=== PATIENT | male | born 1970 | race African-American/Black ===

== ENCOUNTER 2016-11-03 15:10 | Emergency (ER) | payer OTHER ==
[2016-11-03 15:33] VITALS: BP 140/103; PULSE 88; TEMP 98.5; BMI 27.3
--- NOTE | 2016-11-03 15:56 | PDOC ---
History of Present Illness - General History Source: Patient Exam Limitations: No Limitations - History of Present Illness Initial Comments: 11/03/16 16:08 The patient is a 46 year old male with no significant past medical history, who presents to the ED with dysuria since last night. Patient denies any discharge. Denies being sexually active. Patient states this has never occurred in the past. Patient denies fever, chills, nausea, vomiting. Patient denies Urinary urgency, retention, hematuria. <Tyshawn Trejo - Last Filed: 11/03/16 16:08> - General History Source: Patient Exam Limitations: No Limitations <Jensen Edwards - Last Filed: 11/03/16 16:15> - General Chief Complaint: Urinary Problem Stated Complaint: PAIN WITH URINATION Time Seen by Provider: 11/03/16 15:36 Past History <Tyshawn Trejo - Last Filed: 11/03/16 16:08> - Past Medical History Suicide Attempt (Hx): No - Psycho/Social/Smoking Cessation Hx Anxiety: No Suicidal Ideation: No Smoking History: Never smoked Hx Alcohol Use: No Drug/Substance Use Hx: No Substance Use Type: None <Jensen Edwards - Last Filed: 11/03/16 16:15> - Past Medical History Allergies/Adverse Reactions: Allergies Allergy/AdvReac Type Severity Reaction Status Date / Time No Known Allergies Allergy Verified 11/03/16 15:18 Home Medications: Ambulatory Orders Ciprofloxacin [Cipro -] 500 mg PO Q12H #14 tablet 11/03/16 Ibuprofen 600 mg PO Q6H PRN #20 tablet 11/03/16 Review of Systems - Review of Systems Able to Perform ROS?: Yes Comments:: 11/03/16 16:08 GENERAL/CONSTITUTIONAL: No fever or chills. No weakness. HEAD, EYES, EARS, NOSE AND THROAT: No change in vision. No ear pain or discharge. No sore throat. CARDIOVASCULAR: No chest pain or shortness of breath. RESPIRATORY: No cough, wheezing, or hemoptysis. GASTROINTESTINAL: No nausea, vomiting, diarrhea or constipation. GENITOURINARY: + dysuria. No frequency, or change in urination. MUSCULOSKELETAL: No joint or muscle swelling or pain. No neck or back pain. SKIN: No rash NEUROLOGIC: No headache, vertigo, loss of consciousness, or change in strength/ sensation. ENDOCRINE: No increased thirst. No abnormal weight change. HEMATOLOGIC/LYMPHATIC: No anemia, easy bleeding, or history of blood clots. ALLERGIC/IMMUNOLOGIC: No hives or skin allergy. <Tyshawn Trejo - Last Filed: 11/03/16 16:08> *Physical Exam - Vital Signs Last Vital Signs Temp Pulse Resp BP Pulse Ox 98.5 F 88 15 140/103 98 11/03/16 15:19 11/03/16 15:19 11/03/16 15:19 11/03/16 15:19 11/03/16 15:19 - Physical Exam Comments: 11/03/16 16:09 GENERAL: Awake, alert, and fully oriented, in no acute distress HEAD: No signs of trauma EYES: PERRLA, EOMI, sclera anicteric, conjunctiva clear ENT: Auricles normal inspection, hearing grossly normal, nares patent, oropharynx clear without exudates. Moist mucosa NECK: Normal ROM, supple, no lymphadenopathy, JVD, or masses LUNGS: Breath sounds equal, clear to auscultation bilaterally. No wheezes, and no crackles HEART: Regular rate and rhythm, normal S1 and S2, no murmurs, rubs or gallops ABDOMEN: Soft, nontender, normoactive bowel sounds. No guarding, no rebound. No masses Penal exam: Circumcised. no drainage, no rash. EXTREMITIES: Normal range of motion, no edema. No clubbing or cyanosis. No cords, erythema, or tenderness NEUROLOGICAL: Cranial nerves II through XII grossly intact. Normal speech, normal gait SKIN: Warm, Dry, normal turgor, no rashes or lesions noted. <Tyshawn Trejo - Last Filed: 11/03/16 16:08> - Vital Signs Last Vital Signs Temp Pulse Resp BP Pulse Ox 98.5 F 88 15 140/103 98 11/03/16 15:19 11/03/16 15:19 11/03/16 15:19 11/03/16 15:19 11/03/16 15:19 <Jensen Edwards - Last Filed: 11/03/16 16:15> ED Treatment Course - ADDITIONAL ORDERS Additional order review: Laboratory Results 11/03/16 15:50 Urine Color Straw Urine Appearance Clear Urine pH 6.0 Ur Specific Crawford 1.015 Urine Protein Negative Urine Glucose (UA) Negative Urine Ketones Trace Urine Blood Trace-intact Urine Nitrite Negative Urine Bilirubin Negative Urine Urobilinogen 1.0 e.u/dl Ur Leukocyte Esterase Negative <Tyshawn Trejo - Last Filed: 11/03/16 16:08> Medical Decision Making - Medical Decision Making 11/03/16 16:12 A portion of this note was documented by scribe services under my direction. I have reviewed the details of the note, within reason, and agree with the documentation with the following case summary and management plan written by me. Patient treated in the ED. Nursing notes are reviewed and incorporated into the medical decision-making. Vital signs reviewed. Peripheral IV access obtained by the nurse, laboratory studies are drawn and sent, reviewed and interpreted by myself. Vital Signs Temp Pulse Resp BP Pulse Ox 98.5 F 88 15 140/103 98 11/03/16 15:19 04 15:19 11/03/16 15:19 11/03/16 15:19 11/03/16 15:19 46-year-old male with no past medical history presents with dysuria. Patient denies fevers, chills, abdominal pain. Reports that he is being with normal force but hare at the end. No discharge. Patient has not been socially active since June. Denies history of sexually transmitted disease. Patient exhibits symptoms or urinary tract infection though has a negative UA. Given the symptoms, we'll prescribe Cipro anyway. We'll refer the patient to urologist. I discussed the physical exam findings, ancillary test results and final diagnoses with the patient. I answered all of the patient's questions. The patient was satisfied with the care received and felt comfortable with the discharge plan and treatment plan. The patient will call their primary care physician within 24 hours to arrange follow-up and will return to the Emergency Department with any new, persistant or worsening symptoms. <Jensen Edwards - Last Filed: 11/03/16 16:15> *DC/Admit/Observation/Transfer - Attestations Scribe Attestion: 11/03/16 16:09 Documentation prepared by Tyshawn Trejo, acting as certified ophthalmic medical technician for Jensen Edwards MD, . <Tyshawn Trejo - Last Filed: 11/03/16 16:08> - Discharge Dispostion Admit: No <Jensen Edwards - Last Filed: 11/03/16 16:15> Diagnosis at time of Disposition: UTI (urinary tract infection) Qualifiers: Urinary tract infection type: site unspecified Hematuria presence: without hematuria Qualified Code(s): N39.0 - Urinary tract infection, site not specified - Discharge Dispostion Disposition: HOME Condition at time of disposition: Good - Prescriptions Prescriptions: Ciprofloxacin [Cipro -] 500 mg PO Q12H #14 tablet Ibuprofen 600 mg PO Q6H PRN #20 tablet PRN Reason: Pain - Referrals Referrals: Wilber Elliott MD [Staff Physician] - Mario Chino MD., [Staff Physician] - - Patient Instructions Printed Discharge Instructions: DI for Dysuria -- Adult Additional Instructions: Please take the 500 mg cipro every 12 hours for the next week. Make an appointment with a urologist and schedule an appointment. This is a referral from the ER.
[2016-11-03 16:00] LABS: URINE APPEARANCE Clear; URINE BILIRUBIN Negative (NEGATIVE); URINE BLOOD Trace-intact (NEGATIVE); URINE GLUCOSE (UA) Negative (NEGATIVE); URINE KETONE Trace (NEGATIVE); URINE LEUK ESTERASE Negative (NEGATIVE); URINE NITRITE Negative (NEGATIVE); URINE PROTEIN Negative (NEGATIVE); URINE UROBILINOGEN 1.0 E.U/dl (0.2-1.0)
[2016-11-03 16:04] LABS: URINE COLOR STRAW
[2016-11-03] MEDS ORDERED: IBUPROFEN 600 MG TABLET (FP) PO ONE ×2 (16:11→16:13)
[2016-11-03] MEDS ORDERED: CIPROFLOXACIN 500 MG TABLET (RESTRICTED TO ID) PO ONE (16:11)
[2016-11-03] MEDS ORDERED: CIPROFLOXACIN 250 MG TABLET (RESTRICTED TO ID) PO ONE (16:14)
== END 2016-11-03 16:20 | disposition home or self-care (01) ==
LOC: FER 15:10
DX: N39.0 Urinary tract infection, site not specified (principal)
CPT/HCPCS: 81003; 87086; 99281-25